=== PATIENT | female | born 1985 | race Two or more races ===

== ENCOUNTER 2021-10-07 12:06 | Emergency (ER) | payer OTHER ==
[~2021-10-07] VITALS: Ht 172.7 cm; Wt 58.1 kg
[~2021-10-07 12:06] MED LIST: CATAFLAM50 MG PO; INTESTINEX1 CAP PO; ORPH100T PO
[2021-10-07] MEDS ORDERED: LEVSIN0.125 MG PO (12:49)
[2021-10-07] MEDS ORDERED: PROTONIX40 M1 PO (12:50)
== END 2021-10-07 18:27 | disposition home or self-care (01) ==
LOC: ER 12:06
DX: R10.9 Unspecified abdominal pain (principal); Z91.018 Allergy to other foods; K58.9 Irritable bowel syndrome, unspecified